=== PATIENT | male | born 1985 | race Caucasian/White ===

== ENCOUNTER 2020-04-30 15:56 | Emergency (ER) | payer BC, SELFPAY ==
[2020-04-30 16:20] VITALS: BP 146/92; PULSE 84; RESP 18; TEMP 36.7; O2SAT 98; BMI 50.3
--- NOTE | 2020-04-30 16:28 | HMH.EDUTC ---
[facility] [place] Impression: Otitis media Qualifiers: Otitis media type: unspecified Laterality: right Qualified Code(s): H66.91 - Otitis media, unspecified, right ear Disposition: Home, Self-Care Condition on Discharge: Good Instructions: Middle Ear Infection, Middle Ear Infections (Alternative Therapy), Amoxicillin Additional Instructions: Take medication as prescribed *Follow up with Family doctor if no improvement or any worsening of symptoms Return if needed Straight to ER if any life threatening symptoms Take all medication for duration of treatment Prescriptions: Amoxicillin [Amoxicillin 500mg Cap] 500 mg PO TID #30 cap Transmission Status: Pending to [facility] Fluticasone Propionate [Flonase 50mcg nasal spray 16gm] 1 spr NS DAILY #1 bottle Transmission Status: Pending to [facility] Referrals: PCP,No [Primary Care Provider] - As needed Time of Disposition: 16:34 Medical Decision Making - Pop Inquiry Pt receiving controlled substance: No Pop was queried for this patient: No Vital Signs: 04/30/20 16:20 Temperature 98.1 F Temperature Source Oral Pulse Rate [Right Brachial] 84 Respiratory Rate 18 Blood Pressure [Right Arm] 146/92 H Blood Pressure Mean [Right Arm] 110 Blood Pressure Source [Right Arm] Automatic Cuff Blood Pressure Position [Right Arm] Sitting 02 Sat by Pulse Oximetry 98 Oxygen Delivery Method [place] [facility] [place] - General Stated complaint: Possible Q tip in R Ear Time Seen by Provider: 04/30/20 16:28 Mode of Arrival: Ambulatory Source of Information: Patient Limitations: No Limitations Description of Symptoms (Recalled from Triage Doc. by RN): PATIENT C/O RIGHT EAR PAIN SINCE YESTERDAY. STATES HE BELIEVES HE HAS A Q-TIP STUCK IN IT HEENT Symptoms (Recalled from RN notes): Yes Resp Symptoms (Recalled from RN notes): No Skin Symptoms (Recalled from RN notes): No MS Symptoms (Recalled from RN notes): No Functional Status (Recalled from RN notes): WNL - History of Present Illness Provider Complaint: Patient states that he has been having pain in his right ear that has got worse since yesterday States that he thinks he may have the tip of Qtip in his ear States that it hurts when he moves his jaw and feels like pain down in his ear so he came in to get it checked out - Related Data Previous Rx's Medication Instructions Recorded Amoxicillin [Amoxicillin 500mg 500 mg PO TID #30 cap 04/30/20 Cap] Fluticasone Propionate [Flonase 1 spr NS DAILY #1 bottle 04/30/20 50mcg nasal spray 16gm] Allergies Allergy/AdvReac Type Severity Reaction Status Date / Time No Known Allergies Allergy Verified 04/30/20 16:25 - Worker's Comp Is this a Worker's Comp case?: No H History - Hepatitis A Screen Drug use history?: No High risk sexual behaviors?: No History of sexually transmitted infection?: No Currently employed?: No Childcare worker?: No Do you have indoor plumbing?: Yes Do you have electricity?: Yes Attestation statement:: This patient has been screened for Hepatitis A risk factors. I have reviewed the patient's past medical history: Yes - Social History Smoking Status: Never smoker Tobacco Type: smokeless tobacco # Packs/Day (cigarettes): 0 Alcohol Intake: current Occupational Status: other ROS Obtained: Yes All systems reviewed & no additional complaints, Yes Systems reviewed as appropriate & no additional complaints - Constitutional Constitutional: Reports system reviewed and no additional complaints, except as docu - Eyes Eyes: Reports system reviewed and no additional complaints, except as docu - ENT Ears, Nose, Mouth, and Throat: Reports otalgia Physical Exam - General General appearance: alert, in no apparent distress - Expanded ENT Exam TM/Canal exam: Right TM: erythema, bulging (No foreign body noted) - Respiratory Respiratory exam: Present: normal lung sounds bilaterally. Absent: resp
[2020-04-30 16:48] VITALS: BP 146/92; PULSE 84; RESP 18; TEMP 36.7; O2SAT 98
== END 2020-04-30 16:49 | disposition home or self-care (01) ==
PROVIDERS: Emergency Provider Nurse Practitioner
DX: H66.91 Otitis media, unspecified, right ear (principal)
CPT/HCPCS: 99201

== ENCOUNTER → 2022-02-23 15:05 | Outpatient (CLI) | payer OTHER, SELFPAY ==
--- NOTE | 2022-02-23 15:21 | CT_ITS ---
FINAL REPORT TECHNIQUE: Thin section axial images were obtained through the abdomen without contrast. Reconstruction images were obtained from the axial data. Exam was performed using dose reduction technique. CLINICAL HISTORY: R/O HERNIA COMPARISON: None. FINDINGS: The lung bases are clear. The liver is fatty infiltrated, without focal hepatic lesion. The gallbladder is absent. The unenhanced spleen, adrenal glands, and pancreas are without acute abnormality. There are no renal stones. There is no hydronephrosis. The abdominal portions of the GI tract are without acute abnormality. There is no small bowel obstruction. There is no lymphadenopathy or ascites. There is a small fat-containing umbilical hernia. The anterior abdominal wall defect measures approximately 19 mm. No acute osseous abnormality is identified. IMPRESSION: 1. Small fat-containing umbilical hernia. 2. Fatty liver. Authenticated by Karine Edouard MD on 02/23/2022 05:01:22 PM [facility]
== END ==
PROVIDERS: PCP Nurse Practitioner; Visit Provider Nurse Practitioner
DX: K46.9 Unspecified abdominal hernia without obstruction or gangrene (principal)
CPT/HCPCS: 74150

== ENCOUNTER → 2022-03-26 10:42 | Outpatient (CLI) | payer OTHER, SELFPAY ==
[2022-03-26 10:53] LABS: Basophils # 0.1 K/mm3 (0-0.2); Basophils % 1.9 % (0.1-2.0); Eosinophils # 0.1 K/mm3 (0.0-0.4); Eosinophils % 2.3 % (0.1-12.0); Hematocrit 48.4 % (42.0-52.0); Hemoglobin 15.7 g/dL (14.1-18.0); Lymphocytes # 1.4 K/mm3 (0.7-4.5); Lymphocytes % 24.6 % (10-50); Mean Corpuscular HGB Conc 32.5 g/dL (31.8-35.4); Mean Corpuscular Hemoglobin 29.9 pg (27.0-31.2); Mean Corpuscular Volume 92.1 fl (80-94); Mean Platelet Volume 7.8 fl (7.4-10.4); Monocytes # 0.3 K/mm3 (0.1-1.0); Monocytes % 5.5 % (1.7-9.3); Neutrophils # 3.7 K/mm3 (1.8-7.8); Neutrophils % 65.7 % (37.0-80.0); Platelet Count 268 K/mm3 (142-424); Red Blood Count 5.26 M/mm3 (4.60-6.20); Red Cell Distribution Width 13.7 % (11.5-17.5); White Blood Count 5.7 K/mm3 (4.8-10.8)
[2022-03-26 11:08] LABS: Anion Gap 12.3 mEq/L (5-15); Blood Urea Nitrogen 10 mg/dl (9-20); Calcium 8.5 mg/dl (8.4-10.2); Carbon Dioxide 24 mmol/L (22.0-30.0); Chloride 104 mmol/L (98-107); Estimated Glomerular Filt Rate 109 ml/min (>60); GFR (African American) 132 ML/MIN (>60); Glucose 140 mg/dl (74-100); Potassium 4.3 mmoL/L (3.5-5.1); Sodium 136 mmol/L (136-145)
== END ==
PROVIDERS: PCP Nurse Practitioner Family; Visit Provider Surgery
DX: Z01.812 Encounter for preprocedural laboratory examination (principal); Z20.822 Contact with and (suspected) exposure to COVID-19; K43.9 Ventral hernia without obstruction or gangrene
CPT/HCPCS: 36415; 80048; 85025; C9803; U0003; U0005

== ENCOUNTER 2022-03-28 07:32 | Day surgery (SDC) | payer OTHER, SELFPAY ==
[2022-03-24 10:00] VITALS: BMI 50.8
[2022-03-28] VITALS (9 sets, daily range): BP systolic 126–148; BP diastolic 71–104; PULSE 94–108; RESP 16–100; TEMP 36.3–36.7; O2SAT 93–100
--- NOTE | 2022-03-28 08:52 | P.PN_ITS ---
[facility] Anesthesia Checklist - Patient Identification Patient Identification: Arm Band, Verbal (Name & ) - Structural Data Admitted From: Home Planned Operative Procedure/s: Laparascopic Ventral Hernia Repair Consent for Planned Operative Procedure(s) Verified: Yes Verified Documents: Surgical Consent - NPO Status Verified Time NPO: 00:00 - Chart Verification Results Verified: CBC, BMP - Additional verifications Anesthesia Reactions: No Hx Blood Transfusions: No Blood Transfusion Reaction: No - Airway Assessment C-Spine Mobility Assessed: Yes TMJ Mobility Assessed: Yes Dentition: Good Dentition - Neurological Assessment Level of Consciousness: Awake, Alert, Appropriate - Anesthesia Plan Anesthesia Risk discussed: Yes ASA Class: II Anesthesia Type: General [facility] History I have reviewed the patient's past medical history: Yes Medical History: Denies:: Cancer, Diabetes Mellitus Type 1, Diabetes Mellitus Type 2, Internal Pacemaker, MRSA, Seizures *Have you ever received a pneumonia vaccine?: No *Have you received a flu vaccine this season?: No Other Medical History: Denies: Blood Transfusion Reaction Anesthesia experience/problems:: none Other Surgeries: Yes: No Previous Surgery. No: Pacemaker Amputation: No Fractures: No - *Social History Last grade of school completed: Some college Smoking Status: Never smoker Tobacco Type: smokeless tobacco # Packs/Day (cigarettes): 0 Alcohol Intake: current Alcohol Intake Frequency:: a few times a week Substance Use Type: denies use *Occupational Status:: employed Housing: house Household Members: spouse, family *Travel in the last 8 weeks: None Family Hx:: No significant family history
--- NOTE | 2022-03-28 12:14 | P.PN_ITS ---
[facility] Anesthesia Record Part I Intake, IV Amount: 900 Estimated blood loss (mL): 20 Urine output (mL): 150 Blood Pressure: 142/104 SaO2: 95 Pulse Rate: 108 Respiratory Rate: 25 Temperature: 97.9 F Patient is:: Awake Stable to PACU at:: 12:10
--- NOTE | 2022-03-28 12:39 | HMH.OPNOTE ---
Date of procedure: 03/28/22 Pre-op Diagnosis:: Ventral hernia x2 Post-op Diagnosis:: Same Procedure performed:: Laparoscopically directed ventral hernia repair x2 with placement of large size (8 cm) Bard Ventralex mesh at each hernia site Surgeon:: Nathanael Yanez MD FILM MASKER:: Anitha Arias Anesthesia: GETFabián Estimated blood loss (mL): 15 Clinical Note:: Patient is a 36-year-old male with BMI of 51 from [place] referred by Betsy Romano for hernia. Patient states that for some time he has had a bulge in his abdomen when he is straining or sitting up. However, recently over the past 3 to 4 months he has had some discomfort at his umbilical area and in the mid upper abdomen. Of note, he had previously undergone laparoscopic cholecystectomy. He is unsure at which facility. He has been having some pain when lifting. He is wearing a restricting belt . 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 He had undergone a CT scan of the abdomen as an evaluation which reveals findings of umbilical hernia. He describes 2 locations that are uncomfortable to him. One at his umbilical area and 1 in the mid abdomen. I reviewed his CT scan images. There does appear to be a tiny defect in the right midline in the mid abdomen consistent with a small fat-containing incisional hernia. There is a small to moderate umbilical hernia containing fat as well. I discussed the options with the patient explained him the nature of the issue. He would like to pursue surgery. I feel that this would best be served laparoscopically with possible laparoscopically directed versus fully laparoscopic repair of both areas with small mesh. I explained to him the nature and details of the proposed procedure along with the associated risks and expected outcome. He understands and agrees to proceed. Operative findings:: Patient had a small umbilical hernia with defect measuring about 12 to 15 mm. In the right mid abdomen there was a likely trocar site hernia with a defect measuring about 12 to 15 mm as well with some herniated omentum. Operative note:: Patient was taken the operating room. He was given preoperative intravenous antibiotics. In the operating room he was placed in a supine position. General anesthesia was induced via endotracheal tube. Abdomen was prepped and draped in the standard surgical fashion. A 5 mm left subcostal incision was made and optical trocar was inserted under laparoscopic visualization. CO2 pneumoperitoneum was achieved to 15 mmHg. Laparoscopic surveillance was then carried out. There was noted to be a hernia in the right mid abdomen with herniated omentum. At the umbilical area there was a small umbilical hernia with herniated preperitoneal fatty tissues. 5 mm trocar was inserted in the left lateral abdomen. The herniated omentum from the upper hernia was easily reduced. The falciform ligament was divided and dissected free superiorly to allow for appropriate placement of mesh for good coverage. Next attention was turned to dissection around the umbilical hernia. The preperitoneal fat was dissected free as the fascia was incised with sotero ultrasonic harmonic anayeli. Overall size of the defect seemed to be rather small measuring about 12 to 15 mm. Plan was made for repair of both hernias with laparoscopically directed Ventralex mesh. 12 mm trocar was inserted through the hernia defect after skin incision in the upper hernia. Large sized Bard Ventralex mesh was inserted through the trocar. Trocar was then removed. Mesh was initially loosely secured with placement of several Endo anchor tacks . The tails of the mesh were then sutured superiorly and inferiorly to the fascia using 2-0 PDS. Tails were cut flush with the fascia. Fascia was closed over the mesh using several 0 Ethibond sutures. In a similar fashion through subumbilical incision 12 mm trocar was inserted through the umbilic
[2022-03-28 15:36] LABS: Microscopic,Cath URINE MICROSCOPIC (MICROSCOPIC)
[2022-03-28 15:45] LABS: Appearance,Urine/Cath CLEAR (Clear); Bilirubin,Cath Negative (Negative); Blood, Urine/Cath Negative (Negative); Color,Urine/Cath YELLOW (Yellow); Glucose,Urine/Cath (UA) Negative (Negative); Ketones,Urine/Cath Negative (Negative); Leukocyte Esterase,Cath Negative (Negative); Nitrate,Cath Negative (Negative); Protein,Urine/Cath Negative (Negative); Specific Gravity, Urine/Cath 1.025 (1.005-1.030); Urobilinogen,Cath 0.2 EU/dl (0.2)
[2022-03-28 16:06] LABS: Bacteria,Urine/Cath 3+ /lpf; RBC,Urine/Cath Occasional # /hpf (0-3)
[2022-03-28 16:07] LABS: Squamous Epithelial Ur./Cath Occasional #/hpf (0-5)
--- NOTE | 2022-03-31 08:10 | HMH.ANESII ---
[facility] Anesthesia Record Part II Discharge Time: 12:40 Destination: Home PACU nurse assessment reviewed?: Yes Patient Condition:: Good Anesthesia Complications:: None Swallowing reflex intact?: Yes Cyanosis?: No Blood Pressure: 132/71 Pulse Rate: 99 Temperature: 97.0 F Mental Status: Alert & Oriented Pain level:: 3 Nausea and/or vomitting:: None Intake, IV Amount: 0
[2022-03-31 08:11] VITALS: BP 132/71; PULSE 99; TEMP 36.1
== END 2022-03-28 13:30 | disposition home or self-care (01) ==
LOC: OR 07:33
PROVIDERS: PCP Nurse Practitioner; Visit Provider Surgery
PROC: 0WQF4ZZ Repair Abdominal Wall, Percutaneous Endoscopic Approach (ICD-10-PCS; CPT 49652; principal; 2022-03-28 09:00)
DX: K43.9 Ventral hernia without obstruction or gangrene (principal)
CPT/HCPCS: 49652; 81001; 87086; 96374; C1781; J2405

== ENCOUNTER → 2022-05-03 09:29 | Outpatient (CLI) | payer OTHER, SELFPAY ==
--- NOTE | 2022-05-03 09:29 | CT_ITS ---
FINAL REPORT CLINICAL HISTORY: post hernia surgery COMPARISON: 02/23/2022 FINDINGS: CT OF THE ABDOMEN AND PELVIS WITH CONTRAST Axial CT images of the abdomen and pelvis were obtained after the administration of oral and iv contrast. Coronal reformatted images were also obtained and reviewed.This study was performed with techniques to keep radiation doses as low as reasonably achievable (ALARA). Individualized dose reduction techniques using automated exposure control or adjustment of mA and/or kV according to the patient's size were employed. Abdomen: The lung bases are clear. The heart is normal in size. There is fatty infiltration of the liver. The patient is status post cholecystectomy. The spleen is unremarkable. No adrenal mass is present. The pancreas has an unremarkable appearance. The kidneys are normal, without evidence of mass or hydronephrosis. The aorta is normal in caliber. There is no free fluid or adenopathy. No mass or abnormal fluid collection is seen. There is interval postoperative change in the umbilical region. Pelvis: The appendix is not well-visualized. The urinary bladder is unremarkable. No inflammatory process is seen. There is no evidence of mass or adenopathy. There is no evidence of bowel obstruction. IMPRESSION: The liver. Interval postoperative change in the umbilical region. Reviewed, Interpreted and Dictated by Nathanael Dockery III, MD Transcribed by Trupti Lo Authenticated and . [facility]
== END ==
PROVIDERS: PCP Nurse Practitioner; Visit Provider Surgery
DX: K46.9 Unspecified abdominal hernia without obstruction or gangrene (principal); Z48.89 Encounter for other specified surgical aftercare
CPT/HCPCS: 74177; Q9967

== ENCOUNTER → 2022-07-02 08:07 | Outpatient (CLI) | payer OTHER, SELFPAY | PROVIDERS: PCP Nurse Practitioner Family; Visit Provider Surgery | DX: Z01.812 Encounter for preprocedural laboratory examination (principal); Z20.822 Contact with and (suspected) exposure to COVID-19; D23.9 Other benign neoplasm of skin, unspecified | CPT/HCPCS: C9803; U0003; U0005 ==

== ENCOUNTER 2022-07-04 07:10 | Day surgery (SDC) | payer OTHER, SELFPAY ==
[2022-07-01 12:09] VITALS: BMI 49.4
[2022-07-04 07:22] VITALS: BP 137/86; PULSE 92; RESP 18; TEMP 36.8; O2SAT 18
--- NOTE | 2022-07-04 08:08 | EXP.OP.NOTE ---
Date of procedure: 07/04/22 Pre-op Diagnosis:: Dysplastic nevus Post-op Diagnosis:: Same Procedure performed:: Reexcision skin lesion, left upper abdominal wall quadrant, 3 cm, with intermediate complexity closure Surgeon:: Nathanael Yanez MD Anesthesia: local Estimated blood loss (mL): 5 Clinical Note:: Patient presents for reexcision skin lesion on the left upper quadrant. He underwent laparoscopic ventral hernia repair on 03/28/2022. In the left subcostal incision adjacent to the skin edge there was a tiny atypical appearing, 1 mm pigmented skin lesion which was excised and sent off as a specimen. This returned as a junctional lentiginous nevus demonstrating mild cytologic atypia/architectural disorder (dysplastic nevus) with melanocytic proliferation focally extending to the peripheral edge . Apparently his grandfather did have metastatic advanced melanoma. Given the pathology findings and family history plan was made for excision of left upper quadrant scar. Operative findings:: Consistent with subdermal scar tissue Operative note:: Patient was taken to the procedure room. He was maintained on the stretcher. The area was prepped and draped in the standard surgical fashion. Skin was marked with a skin marker for grossly negative margins. Local anesthetic was infiltrated. Full-thickness skin incision was made and the overlying skin ellipse was dissected free from subcutaneous tissues with scissor dissection. Was sent off as a specimen. Hemostasis was achieved with electrocautery. Deep dermal tissues were reapproximated with interrupted 3-0 Vicryl. Skin was closed with interrupted 4-0 nylon. Clean dry sterile dressing was applied. Condition: stable Disposition: other Complications:: None immediate
[2022-07-04 08:10] VITALS: BP 150/79; PULSE 93; RESP 17; TEMP 36.6; O2SAT 96
== END 2022-07-04 08:20 | disposition home or self-care (01) ==
PROVIDERS: PCP Nurse Practitioner; Visit Provider Surgery
PROC: (CPT 11402; principal; 2022-07-04 07:30)
DX: D23.5 Other benign neoplasm of skin of trunk (principal)
CPT/HCPCS: 11402; 12032